=== PATIENT | female | born 1975 | race Caucasian/White ===

== ENCOUNTER 2018-12-09 17:20 | Emergency (ER) | payer OTHER ==
[~2018-12-09] VITALS: Ht 160 cm; Wt 74.8 kg
[2018-12-09 19:08] VITALS: BP 156/94
== END 2018-12-09 19:08 | disposition home or self-care (01) ==
LOC: ER 17:20
DX: M20.011 Mallet finger of right finger(s) (principal); F17.200 Nicotine dependence, unspecified, uncomplicated; W22.8XXA Striking against or struck by other objects, initial encounter; Y92.89 Other specified places as the place of occurrence of the external cause; Y93.E5 Activity, floor mopping and cleaning; Y99.8 Other external cause status